=== PATIENT | female | born 1985 | race Caucasian/White ===

== ENCOUNTER → 2016-05-30 | Outpatient (CLI) | payer BC ==
[~2016-05-30] MED LIST: ACET1TAB12 PO; AMPH20TA2 PO; BENZ56AE TP; BIRTH CONTROL PILL; CALC-656 PO; CODE-54 PO; DCS100C PO; HYDR-3583 PO; HYDR-707 PO; IBP600T1 PO; Ibuprofen PO; PREN-93 PO; PREN1TAB39 PO; [UNRECOGNIZED DRUG - OTHER]
--- NOTE | 2016-05-31 12:55 | Diagnostic Imaging Report ---
EXAMINATION: OB ultrasound. INDICATION: survey. FINDINGS: The cervix is 7.4 cm in length and is closed. The heart rate is 143 BPM. The placenta is anterior. No previa. The anatomy demonstrates an unremarkable appearance of the spine with no hydronephrosis or cystic renal mass. The stomach, four-chamber view, cord insertion, 2 umbilical arteries, and posterior fossa are visualized. There is no ventriculomegaly demonstrated. The urinary bladder is seen. The growth parameters are: Biparietal diameter: 20 weeks 0 days. Head circumference: 20 weeks 0 days. Abdominal circumference: 20 weeks 3 days. Femur length: 20 weeks 0 days. These average at: 20 weeks 1 day. This compares to a gestational age of 19 weeks and 4 days based on the provided MARISA of 10/20/2016. IMPRESSION: Appropriate interval growth. Completed survey. Dictated by: Dictated on workstation # [id number]
== END ==
LOC: RAD 15:46
PROVIDERS: ATTEND Obstetrics & Gynecology
DX: Z34.92 Encounter for supervision of normal pregnancy, unspecified, second trimester (principal)
CPT/HCPCS: 76805

== ENCOUNTER 2016-10-19 09:36 | Inpatient (IN) | payer BC ==
[2016-10-19] VITALS (35 sets, daily range): BP systolic 94–132; BP diastolic 56–78
[~2016-10-19] VITALS: Ht 167.6 cm; Wt 84.4 kg
[2016-10-19] MEDS ORDERED: D5 LR IV SOLUTION 1,000 ML IV SCH (09:55)
[2016-10-19] MEDS ORDERED: MINERAL OIL CONCENTRATE 99.9% 15 ML UDC TOP PRN (10:00)
[2016-10-19 10:23] LABS: BASOPHILS % (AUTO) 0 % (0-10); EOSINOPHILS % (AUTO) 0 % (0-10); LYMPHOCYTES % (AUTO) 9 % (12-44); MEAN CORPUSCULAR HEMOGLOBIN 34 PG (25-34); MEAN CORPUSCULAR HGB CONC 34 G/DL (32-36); MEAN CORPUSCULAR VOLUME 100 FL (80-99); MEAN PLATELET VOLUME 10.4 FL (7.4-10.4); MONOCYTES # (AUTO) 0.4 X 10^3 (0.0-1.0); MONOCYTES % (AUTO) 4 % (0-12); NEUTROPHILS # (AUTO) 9.4 X 10^3 (1.8-7.8); NEUTROPHILS % (AUTO) 87 % (42-75); PLATELET COUNT 126 10^3/uL (130-400); RED BLOOD COUNT 3.49 10^6/uL (4.35-5.85); RED CELL DISTRIBUTION WIDTH 13.6 % (10.0-14.5); WHITE BLOOD COUNT 10.8 10^3/uL (4.3-11.0)
[2016-10-19 10:42] LABS: BAND NEUTROPHILS 5 %; BASOPHILS % (MANUAL) 0 %; EOSINOPHILS % (MANUAL) 0 %; LYMPHOCYTES % (MANUAL) 8 %; NEUTROPHILS % (MANUAL) 83 %
[2016-10-19] MEDS ORDERED: OXYTOCIN/NORMAL SALINE 500 ML IV ONE (12:10)
[2016-10-19] MEDS ORDERED: SUFENTA 0.6MCG/ML BUPIVA 0.125 100 ML ONE (13:32)
[2016-10-19] MEDS ORDERED: BUPIVACAINE 0.25% 30 ML (SENSORCAINE) VIAL ONE (13:46)
[2016-10-19] MEDS ORDERED: fentaNYL INJECTION 100 MCG/2 ML AMP ONE (13:46)
[2016-10-19] MEDS ORDERED: CATHETER FLUSH 10 ML SYR IV SCH ×2 (14:00→22:00)
[2016-10-19] MEDS ORDERED: LACTATED RINGERS 1,000 ML IV ONE ×2 (14:17)
[2016-10-19] MEDS ORDERED: EPIDURAL (SUFENTA 0.6MCG/ML BUPIVA 0.125%) 100 ML BAG EPI PRN (14:30)
[2016-10-19] MEDS ORDERED: ONDANSETRON 4 MG/2 ML (SDV) Z0FRAN IV PRN (14:30)
[2016-10-19] MEDS ORDERED: NALOXONE 0.4 MG/ML 1 ML (NARCAN) VIAL IV PRN (14:30)
[2016-10-19] MEDS ORDERED: OXYTOCIN/NORMAL SALINE 500 ML IV SCH (15:58)
[2016-10-19] MEDS ORDERED: APAP 300 MG/CODEINE 30 MG (TYLENOL #3) TAB PO PRN (16:00)
[2016-10-19] MEDS ORDERED: MEASLES,MUMPS,RUBELLA 1 EA INJ SQ ONE (16:00)
[2016-10-19] MEDS ORDERED: BENZOCAINE/MENTHOL (DERMOPLAST) 56 ML CAN TP PRN (16:00)
[2016-10-19] MEDS ORDERED: WITCH HAZEL(TUCKS) 40 EA JAR TOP PRN (16:00)
[2016-10-19] MEDS ORDERED: DIBUCAINE (NUPERCAINAL) 1% OINT 30 GM TOP PRN (16:00)
[2016-10-19] MEDS ORDERED: TETANUS,DIPTH,PERTUSS P/F (BOOSTRIX) 0.5 ML VIAL IM ONE (16:00)
--- NOTE | 2016-10-19 16:02 | OB Labor & Delivery Record ---
L&D History History Expected Date of Delivery: Oct 20, 2016 Gestational Age in Weeks: 39 Complications Events: Routine care Operative Indications (Cesarea: N/A-Vaginal Delivery Intrapartal Events: None L&D Stage1 Stage One Onset of Labor - Date: Oct 19, 2016 Monitors and Tracing Monitor Mode: External Heart Rate: 135 Monitor Accelerations: Uniform Monitor Decelerations: None Senior Living Variability: Average (6-10) Short Term Variability: Present Presentation: Vertex Vital Signs VS - Last 72 Hours, by Label 10/19/16 10/19/16 10/19/16 10/19/16 09:30 10:00 10:35 11:00 Pulse 92 80 77 83 Resp 20 20 20 20 B/P (MAP) 117/70 107/63 108/67 110/63 O2 Delivery Room Air Room Air Room Air Room Air 10/19/16 10/19/16 10/19/16 10/19/16 11:30 12:00 12:30 13:00 Pulse 86 74 72 72 Resp 20 18 18 18 B/P (MAP) 112/66 103/60 113/68 113/68 O2 Delivery Room Air Room Air Room Air Room Air Rupture of Membranes Spontaneous Ruture of Membrane: No Amniotic Membrane Rupture Time: 12:30 Amniotic Membrane Fluid Desc.: Clear Vaginal Bleeding Description: Normal Show Progress/Notes Patient obtained epidural shortly after artificial rupture membranes was performed and Pitocin augmentation was initiated. 2 mU/m was a maximum dose. L&D Stage2 Stage Two Stage II Date: Oct 19, 2016 Monitors and Tracing Monitor Mode: External Heart Rate: 120 Monitor Accelerations: Uniform Monitor Decelerations: Variable Senior Living Variability: Average (6-10) Short Term Variability: Present Position: Right Occiput Anterior Presentation: Vertex Cord Descript/Complications Cord Vessel Description: 3 Vessels Complications nuchal cord x 1 reduced Delivery Type Infant Delivery Method: Spontaneous Vaginal Anterior Shoulder: Right Episiotomy/Perineal Laceration Laceraction(s)/Extensions: No Condition of Infant Delivery 1 minute Comment: 8 5 minute Comment: 9 Notes Live male weight 9lbs 6 oz Condition of Infant Condition of Infant: Living Exam: No Observed Abnormalities Resuscitation Resuscitation: N/A - Spontaneous Resp L&D Stage3 Stage Three Stage III Date: Oct 19, 2016 Pictocin Pitocin Administration Comment: 30 mu/ wide open Placenta Delivery Placenta Delivery: Spontaneous Delivery Summary Summary blood loss >1000ml: No 250 Attending at delivery: Odalys Verdugo DO Condition of Delivery Examined: Cervix Examined, Uterus Explored Post Hemorrhage: No Condition of Mother stable Condition of Infant (s) stable ODALYS VERDUGO DO Oct 19, 2016 4:02 pm
--- NOTE | 2016-10-19 16:05 | History & Physical-OB ---
OB - Chief Complaint & HPI Date/Time Date of Admission: Date of Admission: Oct 19, 2016 at 9:36 am Time Seen by Provider: 12:30 Chief Complaint/History OB-Reason for Admission/Chief: Induction of Labor Hx : 5 Hx Para: 2 Expected Date of Delivery: Oct 20, 2016 Gestational Age in Weeks: 39 Gestational Age in Days: 6 Admission Nurse Assessment Rev: Yes History of Labs O pos Antibody neg RI RPR NR HBsAg NR HIV NR GC neg GBS neg Allergies and Home Medications Allergies Coded Allergies: No Known Drug Allergies (Unverified , 09/02/08) Home Medications Acetaminophen/Codeine 1 Tab Tablet, 1-2 TAB PO Q4H PRN for MODERATE TO SEVERE PAIN, #30 Prescribed by: ODALYS VERDUGO on 10/02/13 0733 Benzocaine/Menthol 56 Ml Aerosol, 56 ML TP UD PRN for PAIN, #1 Prescribed by: ODALYS VERDUGO on 10/02/13 0733 Docusate Sodium 100 Mg Cap, 100 MG PO BID, #20 Prescribed by: ODALYS VERDUGO on 10/02/13 0733 Vit/Fe Fumarate/Fa 1 Each Tablet, 1 EACH PO DAILY, #30 Prescribed by: BESSIE GONSALEZ on 09/30/13 1356 [Ibuprofen] 600 MG TAB, 600 MG PO Q6H, #60 Prescribed by: ODALYS VERDUGO on 10/02/13 0733 OB - History Hx of Present Care: Yes Ultrasounds: Normal mid trimester US Obstetrical Complications: None Medical Complications: None Obstetrical History Hx Termination: Yes Hx Multiple Gestation: No Hx Stillbirth: No Hx Complication: No Hx Induced Hypertens: No Hx Maternal Gestational Diabet: No Delivery History Hx Dystocia: No Hx Large For Gestational Age I: No Hx Small for Gestational Age I: No Hx Section: No Hx Vaginal Delivery Post C-Sec: No Hx Blood Disorders: No Adverse Rxn to Tranfusion: No Patient Past Medical History n/a Social History/Family History Recent Infectious Disease Expo: No Sexually Transmitted Disease: No Alcohol Use: Denies Use Recreational Drug Use: No Immunizations Hepatitis A: Yes Hepatitis B: Yes Tetanus Booster (TDap): Unknown Date of Influenza Vaccine: Nov 27, 2010 OB - Admission Exam Physical Exam Date Seen by Provider: Oct 19, 2016 Time Seen by Provider: 12:30 Vitals: Vital Signs 10/19/16 13:00 Pulse 72 Resp 18 B/P (MAP) 113/68 O2 Delivery Room Air HEENT: NCAT Heart: Rhythm Normal Lungs: Clear Abdomen: Gravid Extremities: Normal Reflexes: Normal Cervical Dilatation: 4cm Effacement: 75% Station: -1 Membranes: Intact Heart Rate: 130's Accelerations: Accelerations Present Decelerations: No Decelerations Short Term Variability: Present Residential Variability: Average (6-25) Contractions on Admission: 6-10 Minutes Apart Intensity: Mild Guzman Scoring Tool (Modified) Dilation (cm): 3-4cm (2) Effacement (%): 80-100% (3) Descent/Station: -1,0 (2) Cervix Consistency: Soft (2) Cervix Position: Anterior (2) Add 1 point for: Each previous vaginal delivery (1) Guzman Score: 13 Labs Laboratory Tests Test 10/19/16 10:05 Range/Units White Blood Count 10.8 4.3-11.0 10^3/uL Red Blood Count 3.49 L 4.35-5.85 10^6/uL Hemoglobin 12.0 11.5-16.0 G/DL Hematocrit 35 35-52 % Mean Corpuscular Volume 100 H 80-99 FL Mean Corpuscular Hemoglobin 34 25-34 PG Mean Corpuscular Hemoglobin Concent 34 32-36 G/DL Red Cell Distribution Width 13.6 10.0-14.5 % Platelet Count 126 L 130-400 10^3/uL Mean Platelet Volume 10.4 7.4-10.4 FL Neutrophils (%) (Auto) 87 H 42-75 % Lymphocytes (%) (Auto) 9 L 12-44 % Monocytes (%) (Auto) 4 0-12 % Eosinophils (%) (Auto) 0 0-10 % Basophils (%) (Auto) 0 0-10 % Neutrophils # (Auto) 9.4 H 1.8-7.8 X 10^3 Lymphocytes # (Auto) 1.0 1.0-4.0 X 10^3 Monocytes # (Auto) 0.4 0.0-1.0 X 10^3 Eosinophils # (Auto) 0.0 0.0-0.3 10^3/uL Basophils # (Auto) 0.0 0.0-0.1 10^3/uL Neutrophils % (Manual) 83 % Lymphocytes % (Manual) 8 % Monocytes % (Manual) 4 % Eosinophils % (Manual) 0 % Basophils % (Manual) 0 % Band Neutrophils 5 % Macrocytosis SLIGHT OB - Assessment/Plan/Diagnosis Assessment Assessment: induction of labor Plan Plan: Induction Induction Method: AROM Discharge Diagnosis Diagnosis: 31 yo @ 39.6 GBS neg ODALYS VERDUGO DO Oct 19, 2016 4:05 pm
[2016-10-19] MEDS: IBUPROFEN 600 MG (MOTRIN) TAB PO SCH ×2 (18:29→23:44)
[2016-10-19] MEDS: DOCUSATE SODIUM 100 MG (COLACE) CAP PO SCH (21:04)
[2016-10-20 04:02] VITALS: BP 125/85
[2016-10-20] MEDS: IBUPROFEN 600 MG (MOTRIN) TAB PO SCH ×3 (05:53→15:35)
[2016-10-20 06:02] LABS: BASOPHILS % (AUTO) 0 % (0-10); EOSINOPHILS # (AUTO) 0.1 10^3/uL (0.0-0.3); EOSINOPHILS % (AUTO) 1 % (0-10); LYMPHOCYTES # (AUTO) 1.5 X 10^3 (1.0-4.0); LYMPHOCYTES % (AUTO) 14 % (12-44); MEAN CORPUSCULAR HEMOGLOBIN 35 PG (25-34); MEAN CORPUSCULAR HGB CONC 34 G/DL (32-36); MEAN CORPUSCULAR VOLUME 101 FL (80-99); MEAN PLATELET VOLUME 10.4 FL (7.4-10.4); MONOCYTES # (AUTO) 0.4 X 10^3 (0.0-1.0); MONOCYTES % (AUTO) 4 % (0-12); NEUTROPHILS # (AUTO) 8.7 X 10^3 (1.8-7.8); NEUTROPHILS % (AUTO) 81 % (42-75); PLATELET COUNT 110 10^3/uL (130-400); RED BLOOD COUNT 3.23 10^6/uL (4.35-5.85); RED CELL DISTRIBUTION WIDTH 13.4 % (10.0-14.5); WHITE BLOOD COUNT 10.6 10^3/uL (4.3-11.0)
[2016-10-20] MEDS ORDERED: PRENATAL VITAMIN 1 EA TAB PO SCH (07:00)
[2016-10-20] MEDS ORDERED: FERROUS SULF 325 MG (IRON) TAB PO SCH (08:00)
[2016-10-20 08:12] VITALS: BP 110/80
[2016-10-20] MEDS: DOCUSATE SODIUM 100 MG (COLACE) CAP PO SCH (08:15)
--- NOTE | 2016-10-20 10:58 | Progress Note-Standard ---
Standard Progress Note Progress Notes/Assess & Plan Date Seen by Provider: Oct 20, 2016 Time Seen by Provider: 10:00 Progress/Assessment & Plan Patient is doing well day one from normal vaginal delivery. She reports lochia is light, cramping with breast-feeding but otherwise pain is well -controlled. No problems ambulating or voiding. Vital Sign - Last 24 Hours 10/19/16 10/19/16 10/19/16 10/19/16 11:00 11:30 12:00 12:30 Pulse 83 86 74 72 Resp 20 20 18 18 B/P (MAP) 110/63 112/66 103/60 113/68 O2 Delivery Room Air Room Air Room Air Room Air 10/19/16 10/19/16 10/19/16 10/19/16 13:00 13:00 13:20 13:40 Pulse 73 72 73 96 Resp 18 18 18 18 B/P (MAP) 112/61 113/68 107/56 109/68 O2 Delivery Room Air Room Air Room Air Room Air 10/19/16 10/19/16 10/19/16 10/19/16 13:50 14:00 14:05 14:09 Pulse 85 112 96 84 Resp 20 20 20 20 B/P (MAP) 111/61 113/67 121/73 121/72 Pulse Ox 100 100 O2 Delivery Room Air Room Air Room Air Room Air 10/19/16 10/19/16 10/19/16 10/19/16 14:11 14:15 14:20 14:25 Pulse 81 88 81 86 Resp 20 20 20 20 B/P (MAP) 119/72 121/75 113/69 106/69 Pulse Ox 100 100 98 98 O2 Delivery Room Air Room Air Room Air Room Air 10/19/16 10/19/16 10/19/16 10/19/16 14:30 14:35 14:40 14:55 Pulse 75 83 78 85 Resp 20 18 18 18 B/P (MAP) 116/71 111/70 110/69 117/72 Pulse Ox 100 100 100 100 O2 Delivery Room Air Room Air Room Air Room Air 10/19/16 10/19/16 10/19/16 10/19/16 15:00 15:15 15:25 15:47 Temp 98.4 Pulse 82 81 97 96 Resp 18 20 20 20 B/P (MAP) 112/63 124/75 127/78 128/67 Pulse Ox 100 100 100 100 O2 Delivery Room Air Room Air Room Air Room Air 10/19/16 10/19/16 10/19/16 10/19/16 16:00 16:15 16:30 16:45 Pulse 87 80 80 67 Resp 18 20 20 18 B/P (MAP) 132/73 123/71 125/75 128/71 O2 Delivery Room Air Room Air Room Air Room Air 10/19/16 10/19/16 10/19/16 10/19/16 17:00 17:15 17:30 20:00 Temp 97.8 Pulse 69 65 69 79 Resp 18 18 18 18 B/P (MAP) 125/57 109/60 107/66 111/71 Pulse Ox 98 O2 Delivery Room Air Room Air Room Air Room Air 10/19/16 10/20/16 10/20/16 23:50 04:02 08:12 Temp 98.4 97.5 97.5 Pulse 79 65 74 Resp 18 18 18 B/P (MAP) 94/60 125/85 110/80 Pulse Ox 98 99 99 O2 Delivery Room Air Room Air Room Air Uterine fundus firm and palpated below the umbilicus Laboratory Tests Test 10/20/16 05:50 Range/Units White Blood Count 10.6 4.3-11.0 10^3/uL Red Blood Count 3.23 L 4.35-5.85 10^6/uL Hemoglobin 11.2 L 11.5-16.0 G/DL Hematocrit 33 L 35-52 % Mean Corpuscular Volume 101 H 80-99 FL Mean Corpuscular Hemoglobin 35 H 25-34 PG Mean Corpuscular Hemoglobin Concent 34 32-36 G/DL Red Cell Distribution Width 13.4 10.0-14.5 % Platelet Count 110 L 130-400 10^3/uL Mean Platelet Volume 10.4 7.4-10.4 FL Neutrophils (%) (Auto) 81 H 42-75 % Lymphocytes (%) (Auto) 14 12-44 % Monocytes (%) (Auto) 4 0-12 % Eosinophils (%) (Auto) 1 0-10 % Basophils (%) (Auto) 0 0-10 % Neutrophils # (Auto) 8.7 H 1.8-7.8 X 10^3 Lymphocytes # (Auto) 1.5 1.0-4.0 X 10^3 Monocytes # (Auto) 0.4 0.0-1.0 X 10^3 Eosinophils # (Auto) 0.1 0.0-0.3 10^3/uL Basophils # (Auto) 0.0 0.0-0.1 10^3/uL Diagnosis: day one normal vaginal delivery Plan: Anticipate discharge either later today or early tomorrow morning. precautions. ODALYS VERDUGO DO Oct 20, 2016 10:58 am
[2016-10-20] MEDS ORDERED: ACET1TAB43 PO (10:59)
[2016-10-20] MEDS ORDERED: IBUP-1773 PO (10:59)
[2016-10-20] MEDS ORDERED: DOCU100C37 PO (10:59)
[2016-10-20] MEDS ORDERED: BENZ56AE2 TP (10:59)
--- NOTE | 2016-10-20 11:00 | Discharge Inst-Women's Service ---
Discharge Inst-Women's Serv Depart Medication/Instructions New, Converted or Re-Newed RX: RX on Chart Consults/Follow Up Additional Follow Up: Yes Orders/Referrals Dr. Verdugo in 6 weeks Activity Activity: Activity as Tolerated Driving Instructions: No Driving for 1 Week NO SMOKING: NO SMOKING Nothing Inside Vagina: No Douching, No Chauncey, No Tampons Diet Discharge Diet: No Restrictions Symptoms to Report to : Bleeding Excessive, Pain Increased, Fever Over 101 Degrees F, Vaginal Bleeding Increase, Questions/Concerns For Any Problems or Questions: Contact Your Physician Skin/Wound Care Bathing Instructions: Shower (x 2 weeks) ODALYS VERDUGO DO Oct 20, 2016 11:00 am
[2016-10-20 14:30] VITALS: BP 106/69
[2016-10-20] MEDS ORDERED: TETANUS,DIPTH,PERTUSS P/F (BOOSTRIX) 0.5 ML VIAL IM ONE (18:33)
[2016-10-20 20:20] VITALS: BP 106/69
== END 2016-10-20 20:20 | disposition home or self-care (01) | DRG 775 ==
LOC: LDRP 09:36
PROVIDERS: ADMIT Obstetrics & Gynecology; ATTEND Obstetrics & Gynecology
PROC: 10E0XZZ Delivery of Products of Conception, External Approach (ICD-10-PCS; principal; 2016-10-19)
PROC: 10907ZC Drainage of Amniotic Fluid, Therapeutic from Products of Conception, Via Natural or Artificial Opening (ICD-10-PCS; 2016-10-19)
DX: O69.81X0 Labor and delivery complicated by cord around neck, without compression, not applicable or unspecified (principal); Z37.0 Single live birth; Z3A.39 39 weeks gestation of pregnancy; Z23 Encounter for immunization
CPT/HCPCS: 36415; 85007; 85025; 85027; 86850; 86900; 86901; 90715

== ENCOUNTER 2020-02-12 21:19 | Emergency (ER) | payer OTHER, BC ==
[~2020-02-12] VITALS: Ht 168 cm; Wt 68.0 kg
[~2020-02-12 21:19] MED LIST changes: +ACET1TAB43 PO; +BENZ56AE2 TP; +DOCU100C37 PO; +IBUP-1773 PO
[2020-02-12] MEDS ORDERED: DEXT15TA (21:35)
[2020-02-12] MEDS ORDERED: NORG1TAB16 (21:35)
--- NOTE | 2020-02-12 21:50 | NUR ---
pt updated on anticipated wait time for radiology. pt denies needs at this time.
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
[2020-02-12] MEDS ORDERED: RX-CYCLOBENZAPRINE 10 MG (FLEXERIL) TAB PPK#3 PO STA (23:48)
[2020-02-12] MEDS ORDERED: RX-NAPROXEN (NAPROSYN) 250 MG TAB PPK#4 PO STA (23:48)
[2020-02-12 23:57] VITALS: BP 125/87
[2020-02-12] MEDS ORDERED: MELO15TA14 PO (23:57)
[2020-02-12] MEDS ORDERED: CYCL10TA9 PO (23:57)
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
--- NOTE | 2020-02-13 06:32 | Diagnostic Imaging Report ---
INDICATION: Right arm injury COMPARISON: None FINDINGS: Two views of the right humerus demonstrate no fracture or dislocation. Articular surfaces are normal. IMPRESSION: Negative right humerus Dictated by: Dictated on workstation # [id number]
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
--- NOTE | 2020-02-13 06:35 | Diagnostic Imaging Report ---
INDICATION: Bilateral shoulder injury COMPARISON: None FINDINGS: Multiple views of the bilateral shoulders demonstrate no fracture or dislocation. Articular surfaces are normal. IMPRESSION: No fracture identified Dictated by: Dictated on workstation # [id number]
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
--- NOTE | 2020-02-13 06:53 | Diagnostic Imaging Report ---
INDICATION: Right knee injury pain COMPARISON: None. FINDINGS: 3 views right knee demonstrate no fracture or dislocation. Articular surfaces normal. No joint effusion seen. IMPRESSION: Negative right knee. Dictated by: Dictated on workstation # [id number]
== END 2020-02-13 | disposition home or self-care (01) ==
LOC: EDUNIT# 21:19 → ER 21:21
DX: S16.1XXA Strain of muscle, fascia and tendon at neck level, initial encounter (principal); S29.012A Strain of muscle and tendon of back wall of thorax, initial encounter; S46.912A Strain of unspecified muscle, fascia and tendon at shoulder and upper arm level, left arm, initial encounter; S46.911A Strain of unspecified muscle, fascia and tendon at shoulder and upper arm level, right arm, initial encounter; S80.01XA Contusion of right knee, initial encounter; S00.83XA Contusion of other part of head, initial encounter; S09.90XA Unspecified injury of head, initial encounter; R40.2410 Glasgow coma scale score 13-15, unspecified time; Z83.3 Family history of diabetes mellitus; V89.2XXA Person injured in unspecified motor-vehicle accident, traffic, initial encounter
CPT/HCPCS: 70450; 70486; 71045; 72125; 72128; 72131; 73060; 73562

== ENCOUNTER → 2020-10-16 | Outpatient (CLI) | payer BC, OTHER ==
[~2020-10-16] MED LIST changes: +CYCL10TA9 PO; +DEXT15TA; +MELO15TA14 PO; +NORG1TAB16
[2020-10-16 11:27] LABS: BASOPHILS % (AUTO) 0 % (0-10); EOSINOPHILS % (AUTO) 1 % (0-10); HEMATOCRIT 46 % (35-52); HEMOGLOBIN 15.3 g/dL (11.5-16.0); LYMPHOCYTES % (AUTO) 19 % (12-44); MEAN CORPUSCULAR HEMOGLOBIN 33 pg (25-34); MEAN CORPUSCULAR HGB CONC 34 g/dL (32-36); MEAN CORPUSCULAR VOLUME 99 fL (80-99); MEAN PLATELET VOLUME 9.6 fL (9.0-12.2); MONOCYTES # (AUTO) 0.3 10^3/uL (0.0-1.0); MONOCYTES % (AUTO) 5 % (0-12); NEUTROPHILS # (AUTO) 3.9 10^3/uL (1.8-7.8); NEUTROPHILS % (AUTO) 74 % (42-75); PLATELET COUNT 156 10^3/uL (130-400); WHITE BLOOD COUNT 5.3 10^3/uL (4.3-11.0)
[2020-10-16 11:46] LABS: ALBUMIN 4.1 GM/DL (3.2-4.5); BILIRUBIN,TOTAL 0.3 MG/DL (0.1-1.0); CALCIUM 9.8 MG/DL (8.5-10.1); CREATININE SERUM 0.85 MG/DL (0.60-1.30); POTASSIUM 4.1 MMOL/L (3.6-5.0); TOTAL PROTEIN 7.1 GM/DL (6.4-8.2)
[2020-10-16 11:50] LABS: ERYTHROCYTE SEDIMENTATION RATE 10 MM/HR (0-20)
== END ==
LOC: LAB 11:07
PROVIDERS: ATTEND Family Medicine
DX: R10.11 Right upper quadrant pain (principal); R19.7 Diarrhea, unspecified
CPT/HCPCS: 36415; 80053; 82150; 83690; 85025; 85652

== ENCOUNTER 2021-04-01 05:36 | Outpatient (CLI) | payer BC ==
[~2021-04-01 05:36] MED LIST changes: +CYCL10TA25 PO; -CYCL10TA9 PO
[2021-04-01] MEDS ORDERED: AMPH20TA2 PO (10:55)
== END 2021-04-01 12:23 | disposition home or self-care (01) ==
LOC: PREOP 05:36
PROVIDERS: ATTEND Surgery
DX: Z01.818 Encounter for other preprocedural examination (principal)

== ENCOUNTER 2021-04-08 11:07 | Day surgery (SDC) | payer BC ==
--- NOTE | 2021-04-01 07:42 | HISTORY AND PHYSICAL ---
DATE OF SERVICE: ATTENDING PRIMARY CARE PHYSICIAN: Virginia Hurst DO. DATE OF ADMISSION: 04/08/2021. HISTORY OF PRESENT ILLNESS: The patient is a 36-year-old female, who was referred over to us for a swollen left deep axillary lymph node. She reported that she detected this mid Nov 2020 and it was painful and states that this may have occurred following a COVID shot to the left deltoid. She is unsure, however. She does not report any other adenopathy. No night sweats as well as no inadvertent weight loss. The left axillary node has remained persistently large. PAST MEDICAL HISTORY: None. PAST SURGICAL HISTORY: Removal of right salpingo-oophorectomy 2004, laparoscopic appendectomy 2006, laparoscopic cholecystectomy 2010, D and C 2012, and LEEP procedure 2006. ALLERGIES: No known drug allergies. MEDICATIONS: Cryselle, Adderall 20 mg daily. SOCIAL HISTORY: Negative smoke, negative alcohol. FAMILY HISTORY: Brother, chronic lymphocytic leukemia. Paternal grandmother, breast cancer. Maternal grandfather, colon cancer. REVIEW OF SYSTEMS: A well-nourished female currently in no acute distress. She is not experiencing any shortness of breath or difficulty breathing. No chest pain, palpitations, diaphoresis. No nausea, vomiting, no diarrhea or constipation. No fever, chills, and no recent inadvertent weight loss. All other review of systems are negative. PHYSICAL EXAMINATION: VITAL SIGNS: Blood pressure 130/80 and current weight 149.4 pounds at 5 feet 6 inches. CHEST: Clear. Good breath sounds bilaterally. HEART: Regular and no murmurs. EXTREMITIES: No lower extremity edema and negative Homans sign. HEENT: No scleral icterus. NECK: No cervical lymphadenopathy. ABDOMEN: Soft, nontender, and nondistended. SKIN: Skin along the left axilla is a slightly deep axillary lymph node. There is no surrounding redness or erythema or any drainage. ASSESSMENT AND PLAN: A 36-year-old female with a persistent left axillary adenopathy. Due to the persistence of the lesion, we will proceed with an excisional biopsy of the lesion and schedule it in the operating room and send to pathology for definitive diagnosis. Job ID: [id number] DocumentID: [id number] Dictated Date: 03/30/2021 14:41:26 Director Radio News Date: 03/30/2021 15:01:06 Dictated By: PAIGE VELIZ MD
[2021-04-08] VITALS (11 sets, daily range): BP systolic 99–130; BP diastolic 44–80
[~2021-04-08] VITALS: Ht 167.7 cm; Wt 68.2 kg
--- NOTE | 2021-04-08 11:14 | Progress Note-Pre Operative ---
Pre-Operative Progress Note H&P Reviewed The H&P was reviewed, patient examined and no changes noted. Date Seen by Provider: Apr 08, 2021 Time Seen by Provider: 11:00 Date H&P Reviewed: Apr 08, 2021 Time H&P Reviewed: 11:00 Pre-Operative Diagnosis: lt axillary adenopathy PAIGE VELIZ MD Apr 08, 2021 11:14
[2021-04-08] MEDS ORDERED: HYDROcodone/APAP 5 MG/325 MG (LORTAB) TAB PO ONE (11:15)
[2021-04-08] MEDS ORDERED: morphine INJ 10 MG/ML 1ML (SYR OR VIAL) IVP PRN ×2 (11:15)
[2021-04-08] MEDS ORDERED: ACETAMINOPHEN 325 MG TABLET PO PRN (11:15)
[2021-04-08] MEDS ORDERED: ONDANSETRON 4 MG/2 ML (SDV) Z0FRAN IVP PRN ×2 (11:15→13:15)
[2021-04-08] MEDS ORDERED: HYDR-3817 PO (11:16)
[2021-04-08] MEDS ORDERED: LIDOCAINE/EPI 1%-1:200,000 (XYLOCAINE) 30 ML VIAL ONE (11:17)
--- NOTE | 2021-04-08 11:17 | Discharge Inst-Surgical ---
D/C Lap Instructions-KIDO New, Converted, or Re-Newed RX: RX on Chart Follow Up Appt in 2 weeks Activity as tolerated Regular Diet Symptoms to Report: Fever over 101 degree F, Nausea/Vomiting Infection Signs and Symptoms to report: Increased redness, Foul odor of wound, Increased drainage Bathing instructions: May shower Operative Area Clean/Dry; Keep incision clean/dry If any problems/questions: Contact your physician or go to Emergency Room PAIGE VELIZ MD Apr 08, 2021 11:17
[2021-04-08] MEDS ORDERED: LACTATED RINGERS 1,000 ML IV PRN (11:30)
[2021-04-08] MEDS ORDERED: ceFAZolin 2 GM IV Premixed 50 ML IV ONE (11:30)
[2021-04-08] MEDS ORDERED: ONDANSETRON 4 MG/2 ML (SDV) Z0FRAN ONE (11:34)
[2021-04-08] MEDS ORDERED: LIDOCAINE PF 2% 5 ML (XYLOCAINE) VIAL ONE (11:34)
[2021-04-08] MEDS ORDERED: proPOfol 200 MG/20 ML (DIPRIVAN) VIAL IV ONE (11:34)
[2021-04-08] MEDS ORDERED: fentaNYL INJ 100 MCG/2 ML AMP ONE (11:35)
[2021-04-08] MEDS ORDERED: MIDAZOLAM 2 MG/2 ML (VERSED) VIAL ONE (11:35)
--- NOTE | 2021-04-08 12:46 | Progress Note-Post Operative ---
Post-Operative Progess Note Surgeon (s)/Certified Pedorthotist (s) Surgeon PAIGE VELIZ MD Certified Pedorthotist: erick johnston STEM ROLLER Pre-Operative Diagnosis lt axillary adenopathy Post-Operative Diagnosis lt axillary fibrocystic breast Procedure & Operative Findings Date of Procedure 04/08/21 Procedure Performed/Findings left axillary breast bx. Anesthesia Type general LMA with local Estimated Blood Loss Estimated blood loss (mL): minimal Specimens/Packing Specimens Removed left lateral breast/axillary tail of ordoñezPAIGE Lawrence MD Apr 08, 2021 12:45
[2021-04-08] MEDS ORDERED: SEVOFLURANE (ULTANE) 15 ML INHAL SOLN ONE (12:59)
--- NOTE | 2021-04-08 13:11 | OPERATIVE REPORT ---
DATE OF SERVICE: 04/08/2021 ATTENDING PRIMARY CARE PHYSICIAN: Virginia Hurst DO PREOPERATIVE DIAGNOSIS: Persistent palpable left axillary lymph node. POSTOPERATIVE DIAGNOSIS: Left lateral breast and axillary tail of Schwarz fibrocystic breast tissue. PROCEDURE: Left lateral breast and axilla, breast biopsy. SURGEON: Dominic Fernandes MD COILED TUBING SUPERVISOR: Jared Adam APRN. ANESTHESIA: General laryngeal mask airway and local. ESTIMATED BLOOD LOSS: Minimal. FINDINGS: Fibrocystic breast with a hard nodule that was detected on physical examination; however, there was no lymphadenopathy noted. DISPOSITION: The patient tolerated the procedure well. INDICATIONS: The patient is a 36-year-old female who was referred over to us for an enlarged as well as a painful left deep axillary lymph node. She first detect this mid 11/2020 and states that this may have occurred following a COVID shot in the left deltoid muscle; however, she is unsure. She states that the lesion has persisted and is painful at times. She does not report any fevers or night sweats as well as no inadvertent weight loss. The left axillary node has remained persistently larger and irritated. DESCRIPTION OF PROCEDURE: The patient was brought to the operating room, laid supine on the table. After adequate IV pain and sedative medications and general laryngeal mask airway intubation, the breast and axilla were prepped and draped in standard surgical fashion. A 0.5% Marcaine with epinephrine was used to anesthetize overlying skin along the left lateral breast towards the axilla. A curvilinear skin incision along the glabellar lines was made using a 15 blade. The subcutaneous tissue was then dissected using electrocautery. The lesion was slightly hard and palpable; however, there was no adenopathy identified upon exploration. This appeared to be fibrocystic breast tissue. This segment of the fibrocystic breast tissue, which was symptomatic was excised and sent to pathology. Again, this was reexamined with no other lesions identified. Good hemostasis was observed. The clavipectoral fascia was then approximated using 3-0 Vicryl interrupted suture. Skin was closed using 4-0 Monocryl running subcuticular suture. The wound was then cleaned and covered with Dermabond. The patient tolerated the procedure well. We will await the pathology results of biopsy. Continue monitoring for any changes. Due to her fibrocystic breast, we may recommend a mammography as well as possible breast ultrasound. Job ID: [id number] DocumentID: [id number] Dictated Date: 04/08/2021 12:51:17 Game Attendant Date: 04/08/2021 13:11:02 Dictated By: DOMINIC FERNANDES MD
[2021-04-08] MEDS ORDERED: MEPERIDINE (DEMEROL) INJ 50 MG/ML IVP ONE (13:15)
[2021-04-08] MEDS ORDERED: HYDROmorphone 2 MG/ML VIAL (DILAUDID) IV ONE (13:15)
[2021-04-08] MEDS ORDERED: PROMETHAZINE INJ 25 MG/ML (PHENERGAN) AMP IVP ONE (13:15)
[2021-04-08] MEDS ORDERED: morphine INJ 10 MG/ML 1ML (SYR OR VIAL) IVP ONE (13:15)
--- NOTE | 2021-04-08 15:01 | Anesthesia-General Post-Op ---
General Patient Condition Mental Status/LOC: Same as Preop Cardiovascular: Satisfactory Nausea/Vomiting: Absent Respiratory: Satisfactory Pain: Controlled Complications: Absent Post Op Complications Complications None Follow Up Care/Instructions Patient Instructions None needed. Anesthesia/Patient Condition Patient Condition Patient is doing well, no complaints, stable vital signs, no apparent adverse anesthesia problems. No complications reported per nursing. JOCELIN ROBISON CRNA Apr 08, 2021 15:01
[2021-04-08] MEDS ORDERED: HYDROcodone/APAP 5 MG/325 MG (LORTAB) TAB ONE (15:06)
[2021-04-08] MEDS ORDERED: ONDANSETRON 4 MG (ZOFRAN) ORAL DISSOLVE TAB PO ONE (15:15)
== END 2021-04-08 16:00 ==
LOC: SDC 11:07
PROVIDERS: ATTEND Surgery
DX: N60.32 Fibrosclerosis of left breast (principal)
CPT/HCPCS: 84703; 87081; 88305